=== PATIENT | female | born 1990 | race Caucasian/White ===

== ENCOUNTER 2022-08-08 09:29 | Inpatient (IN) | payer MEDICAID ==
[~2022-08-08] VITALS: Ht 162.6 cm; Wt 129.7 kg
[2022-08-08] MEDS ORDERED: LACTATED RINGERS 1,000 ML IV SCH (09:35)
[2022-08-08] MEDS ORDERED: LACTATED RINGERS 500 ML IV SCH (09:40)
[2022-08-08] MEDS ORDERED: METHYLERGONOVINE 0.2 MG/ML AMP IM PRN (09:40)
[2022-08-08] MEDS ORDERED: CARBOPROST 250 MCG/ML AMP IM PRN (09:40)
[2022-08-08] MEDS ORDERED: AMPICILLIN 2,000 MG in NACL 0.9% 100 ML IV SCH (10:00)
[2022-08-08] MEDS ORDERED: AMPICILLIN 2,000 MG VIAL ONE (10:04)
[2022-08-08] MEDS ORDERED: ceFAZolin 2,000 MG VIAL ONE (10:43)
[2022-08-08 10:44] VITALS: BP 124/70
[2022-08-08 11:07] LABS: BASOPHILS % (AUTO) 0.4 % (0.0-2.0); EOSINOPHILS # (AUTO) 0.2 K/uL (0-0.4); EOSINOPHILS % (AUTO) 2.8 % (0.0-4.0); HEMATOCRIT 33.4 % (36-48); HEMOGLOBIN 11.3 g/dL (12.0-16.0); LYMPHOCYTES % (AUTO) 18.7 % (20.5-51.1); MEAN CORPUSCULAR HEMOGLOBIN 26 pg (27-31); MEAN CORPUSCULAR HGB CONC 34 g/dL (33-37); MEAN CORPUSCULAR VOLUME 78.1 fL (80-94); MONOCYTES # (AUTO) 0.4 K/uL (0.8-1.0); MONOCYTES % (AUTO) 6.4 % (1.7-9.3); NEUTROPHILS # (AUTO) 3.9 K/uL (1.8-7.7); NEUTROPHILS % (AUTO) 71.7 % (42.2-75.2); PLATELET COUNT (AUTO) 181 K/uL (140-450); RED BLOOD CELL COUNT(AUTO) 4.28 MIL/uL (4.20-5.40); RED CELL DISTRIBUTION WIDTH 16.1 % (11.6-13.7); WHITE BLOOD COUNT (AUTO) 5.5 K/uL (4.8-10.8)
[2022-08-08 11:09] LABS: APPEARANCE,URINE CLEAR (CLEAR); BILIRUBIN,URINE NEGATIVE (NEGATIVE); BLOOD, URINE TRACE-I (NEGATIVE); COLOR,URINE YELLOW (YELLOW); LEUKOCYTE ESTERASE ,URINE NEGATIVE (NEGATIVE); NITRITE, URINE NEGATIVE (NEGATIVE); UGLUCOSE NEGATIVE (NEGATIVE)
[2022-08-08 11:31] LABS: PROTHROMBIN TIME 9.3 secs (10.8-13.4)
[2022-08-08 11:34] LABS: ALBUMIN 2.4 g/dL (3.4-5.0); ANION GAP 13.9 (8-16); CARBON DIOXIDE 21.9 mmol/L (21-32); CREATININE 0.6 mg/dL (0.6-1.3); POTASSIUM 3.8 mmol/L (3.5-5.1); TOTAL BILIRUBIN 0.2 mg/dL (0.0-1.0)
[2022-08-08] MEDS ORDERED: PRETAB PO (11:46)
[2022-08-08] MEDS ORDERED: ROB PO (11:46)
[2022-08-08] MEDS ORDERED: CETI10SG1 PO (11:46)
[2022-08-08 11:47] LABS: OTHER CASTS, URINE None Seen /LPF (None Seen); RBC,URINE 0-5 /HPF (0-5); WBC,URINE 0-5 /HPF (0-5)
[2022-08-08] MEDS ORDERED: MORPHINE PRES FREE 10 MG/10 ML AMP IV ONE (12:25)
[2022-08-08] MEDS ORDERED: NALOXONE 0.4 MG/ML VIAL IVP PRN (12:55)
[2022-08-08] MEDS ORDERED: diphenhydrAMINE 50 MG/ML VIAL IVP PRN (12:55)
[2022-08-08] MEDS ORDERED: OXYTOCIN 20 UNITS in LACTATED RINGERS 1,000 ML IV SCH ×2 (12:55→13:00)
[2022-08-08] MEDS ORDERED: oxyCODONE/APAP 5/325 MG 1 TAB TAB PO PRN (13:00)
[2022-08-08] MEDS ORDERED: IBUPROFEN 800 MG TAB PO PRN (13:00)
[2022-08-08] MEDS ORDERED: TEMAZEPAM 15 MG CAP PO PRN (13:00)
[2022-08-08] MEDS ORDERED: KETOROLAC 30 MG/ML VIAL IVP PRN (13:00)
[2022-08-08] MEDS: OXYTOCIN 20 UNITS/LR PREMIX 1,000 ML IV ONE ×2 (14:15→14:40)
[2022-08-08] MEDS: KETOROLAC 30 MG/ML VIAL IVP PRN (16:52)
[2022-08-08] MEDS ORDERED: OXYTOCIN 20 UNITS/LR PREMIX 1,000 ML IV ONE (23:00)
[2022-08-09] MEDS: KETOROLAC 30 MG/ML VIAL IVP PRN (04:52)
[2022-08-09 06:31] LABS: BASOPHILS % (AUTO) 0.1 % (0.0-2.0); EOSINOPHILS % (AUTO) 0.4 % (0.0-4.0); HEMATOCRIT 30.4 % (36-48); HEMOGLOBIN 10.4 g/dL (12.0-16.0); LYMPHOCYTES # (AUTO) 0.7 K/uL (2.5-16.5); MEAN CORPUSCULAR HEMOGLOBIN 27 pg (27-31); MEAN CORPUSCULAR HGB CONC 34 g/dL (33-37); MEAN CORPUSCULAR VOLUME 77.9 fL (80-94); MONOCYTES # (AUTO) 0.4 K/uL (0.8-1.0); MONOCYTES % (AUTO) 5.5 % (1.7-9.3); NEUTROPHILS # (AUTO) 5.7 K/uL (1.8-7.7); PLATELET COUNT (AUTO) 153 K/uL (140-450); RED BLOOD CELL COUNT(AUTO) 3.91 MIL/uL (4.20-5.40); RED CELL DISTRIBUTION WIDTH 16.1 % (11.6-13.7); WHITE BLOOD COUNT (AUTO) 6.7 K/uL (4.8-10.8)
[2022-08-09] MEDS ORDERED: OXYTOCIN 20 UNITS/LR PREMIX 1,000 ML IV ONE (07:13)
[2022-08-09] MEDS: SIMETHICONE 80 MG TAB.CHEW PO PRN ×3 (08:53→17:16)
--- NOTE | 2022-08-09 09:12 | NUR ---
PATIENT HAS BEEN SCREENED AND CATEGORIZED LOW NUTRITION RISK. PATIENT WILL BE SEEN WITHIN 7 DAYS OF ADMISSION. 08/15/22 REVIEWED BY REJI CABEZ[address] RD
[2022-08-09] MEDS: oxyCODONE/APAP 5/325 MG 1 TAB TAB PO PRN (17:16)
[2022-08-09] MEDS: DOCUSATE SOD/SENNA 50/8.6 MG 1 TAB PO SCH (22:35)
[2022-08-10] MEDS: oxyCODONE/APAP 5/325 MG 1 TAB TAB PO PRN ×3 (04:24→14:15)
[2022-08-10] MEDS: DOCUSATE SOD/SENNA 50/8.6 MG 1 TAB PO SCH ×2 (08:42→14:06)
== END 2022-08-10 15:10 | disposition home or self-care (01) | DRG 540 ==
LOC: MLD 09:29 → OBSVTOIN 09:59 → MFCC 14:46
PROVIDERS: ADMIT Obstetrics & Gynecology; ATTEND Obstetrics & Gynecology
PROC: 10D00Z1 Extraction of Products of Conception, Low, Open Approach (ICD-10-PCS; principal; 2022-08-08 12:30)
DX: O24.429 Gestational diabetes mellitus in childbirth, unspecified control (principal); O16.4 Unspecified maternal hypertension, complicating childbirth; O34.211 Maternal care for low transverse scar from previous cesarean delivery; Z20.822 Contact with and (suspected) exposure to COVID-19; Z37.0 Single live birth; Z3A.39 39 weeks gestation of pregnancy
CPT/HCPCS: 36415; 51702; 80053; 81001; 85025; 85610; 85730; 86592; 86886; 86900; 86901; J0290; J1200; J1885; J2270; J2590; J7120